=== PATIENT | female | born 1965 | race Hispanic/Latino ===

== ENCOUNTER → 2021-08-01 | Outpatient (CLI) | payer OTHER | END | disposition home or self-care (01) | LOC: OIH 12:14 | PROVIDERS: ATTEND Internal Medicine Cardiovascular Disease | DX: R00.2 Palpitations (principal) | CPT/HCPCS: 75571 ==

== ENCOUNTER 2023-02-06 06:45 | Day surgery (SDC) | payer OTHER ==
[2023-02-03 14:45] LABS: BASOPHILS # (AUTO) 0.07 K/uL (0.00-0.20); BASOPHILS % (AUTO) 1.2 % (0.0-5.0); EOSINOPHILS # (AUTO) 0.08 K/uL (0.00-0.70); EOSINOPHILS % (AUTO) 1.3 % (0.0-8.0); HEMATOCRIT 34.9 % (36-48); IMMATURE GRANULOCYTE ABSOLUTE 0.01 K/uL (0-1); LYMPHOCYTES # (AUTO) 2.4 K/uL (1.0-4.8); LYMPHOCYTES % (AUTO) 40.3 % (21.0-51.0); MEAN CORPUSCULAR HEMOGLOBIN 30.6 pg (27.0-33.0); MEAN CORPUSCULAR HGB CONC 34.1 g/dL (32.0-36.0); MEAN CORPUSCULAR VOLUME 89.7 fL (79-99); MONOCYTES # (AUTO) 0.6 K/uL (0.1-1.0); MONOCYTES % (AUTO) 9.8 % (3.0-13.0); NEUTROPHILS # (AUTO) 2.8 K/uL (1.8-7.7); NEUTROPHILS % (AUTO) 47.2 % (40.0-77.0); PLATELET COUNT (AUTO) 254 K/uL (130-400); RED BLOOD CELL COUNT(AUTO) 3.89 MIL/uL (4.00-5.50); RED CELL DISTRIBUTION WIDTH 13.2 % (11.0-15.5); WHITE BLOOD COUNT (AUTO) 5.9 K/uL (4.8-10.8)
[2023-02-03 14:48] VITALS: BP 107/52; PULSE 65; RESP 16
[2023-02-03 14:54] LABS: CREATININE 0.6 mg/dL (0.5-1.5)
[~2023-02-06] VITALS: Ht 160 cm; Wt 66.2 kg
[2023-02-06] VITALS (13 sets, daily range): BP systolic 95–115; BP diastolic 39–73; PULSE 60–97; RESP 10–17
[~2023-02-06 06:45] MED LIST: BUDE10.26 IH; CYAN1TAB44 PO; FERS325 PO; FLUT16H NASAL; FOLIC ACID PO; LEVO25TA54 PO; MIDO5TAB4 PO; OMEP20CA12 PO; ONDA4TAB10 PO; PARO10TA71 PO; PRAM0.5T12 PO; ZOLP5TAB8 PO
[2023-02-06] MEDS ORDERED: LACTATED RINGERS 1000ML 1,000 ML IV ONE (07:06)
[2023-02-06] MEDS ORDERED: CEFAZOLIN SODIUM 1 GM VIAL ONE (07:06)
[2023-02-06] MEDS ORDERED: LIDOCAINE PF 100MG/5ML (2%) SYRINGE 5ML ONE (09:03)
[2023-02-06] MEDS ORDERED: SUCCINYLCHOLINE 200MG/10ML SYR ONE (09:03)
[2023-02-06] MEDS ORDERED: MIDAZOLAM HCL 1 MG/ML 2ML VIAL ONE (09:04)
[2023-02-06] MEDS ORDERED: ROCURONIUM 10MG/1ML SYR 10 MG/ML ML ONE (09:04)
[2023-02-06] MEDS ORDERED: PROPOFOL 10 MG/ML 20ML VIAL IV ONE (09:04)
[2023-02-06] MEDS ORDERED: FENTANYL CITRATE PF 50 MCG/1 ML 2ML VIAL ONE (09:17)
[2023-02-06] MEDS ORDERED: CEFAZOLIN SODIUM 1 GM VIAL IVPB ONE (09:20)
[2023-02-06] MEDS ORDERED: BUPIVACAINE/PF 0.25% 30ML VIAL IJ ONE ×2 (09:39→11:49)
[2023-02-06] MEDS ORDERED: LIDOCAINE HCL 1% 20 ML VIAL INJ ONE (09:39)
[2023-02-06] MEDS ORDERED: GLYCOPYRROLATE 1 MG/5 ML SYRINGE ONE (10:19)
[2023-02-06] MEDS ORDERED: NEOSTIGMINE 5MG/5ML SYR IV ONE (10:19)
[2023-02-06] MEDS ORDERED: LIDOCAINE HCL 1% 20 ML VIAL ONE (11:49)
== END 2023-02-06 11:38 | disposition home or self-care (01) ==
LOC: DAH 06:45
PROVIDERS: ATTEND Student in an Organized Health Care Education/Training Program
DX: D17.1 Benign lipomatous neoplasm of skin and subcutaneous tissue of trunk (principal); I10 Essential (primary) hypertension; E66.9 Obesity, unspecified; Z68.27 Body mass index [BMI] 27.0-27.9, adult
CPT/HCPCS: 80048; 84703; 85025; 36415; 21931; 88304; A6260; A4663; J7120; J3010; J0690 ×2; J0330; J3490; J2710; J0665 ×2; J2001; J2250; J2704; A4930; A4215; A4223; A4222; A4221; A4600; G0168